=== PATIENT | male | born 1940 | race Caucasian/White ===

== ENCOUNTER 2024-08-24 07:47 | Emergency (ER) | payer OTHER, SELFPAY ==
[2024-08-24 07:51] VITALS: BP 166/74
[2024-08-24 08:21] VITALS: BP 159/69
--- NOTE | 2024-08-24 08:21 | ED.GENMED ---
History of Present Illness
<STEFAN Ortiz - Last Filed: 08/24/24 13:09>
General
Chief Complaint: Abdominal Pain
Source: patient and spouse
Exam Limitations: none
Time Seen by Provider: 08/24/24 08:05
Nursing documentation reviewed up to this point in time: agreed with
History of Present Illness
History of Present Illness:
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
prostate cancer nephrectomy due to renal cell carcinoma, renal insufficiency(baseline creatinine 1.8�2) presents to the ER for evaluation. Patient reports on night into Sunday he had upper abdominal pain and some shortness of breath with
chest pain. He felt the sensation that his heart was racing only when he placed his hand on his abdomen chest area. He had no pain yesterday throughout the day but pain started again midnight and has persisted. Again he points to his upper
abdominal area into his chest. He does describe trouble breathing with the pain.
Past History
<STEFAN Ortiz - Last Filed: 08/24/24 13:09>
Past History
ED Past Medical History: CAD, Cancer (Renal cell carcinoma), HTN, Hypercholesterolemia, TN, Renal failure, Other (Hypomagnesemia, bilateral DVT, BPH) and Other (Coronary disease status post stent, spinal stroke, large bowel infarction, [place]
filter)
ED Past Surgical History: Bowel resection (Large bowel resection due to post AAA bowel infarction 2013), Cardiac (Angioplasty), Urological (Right nephrectomy) and Other (AAA repair 2013, patient suffered spinal stroke intraoperative with resultant
paraplegia)
Social History
Tobacco: Former smoker
Alcohol: None
Drug: None
Personal:
Living: with family
Employment: Disabled
Family History
Family History: CAD
Review of Systems
<STEFAN Ortiz - Last Filed: 08/24/24 13:09>
Review of Systems
Allergies reviewed?: Yes
All Other Systems: ROS reviewed and negative except as documented in HPI and ROS
Constitutional: Reports no symptoms; Denies fever, fatigue or chills
EENT: Reports no symptoms
Respiratory: Reports trouble breathing
Cardiac: Reports chest pain (chest pain/upper abd pain )
ABD/GI: Reports abdominal pain; Denies vomiting, diarrhea or bloody stools
: Reports no symptoms
Musculoskeletal: Reports no symptoms
Skin: Reports no symptoms
Neurological: Reports no symptoms
Psychiatric: Reports no symptoms
Phy Exam
<STEFAN Ortiz - Last Filed: 08/24/24 13:09>
General Physical Exam
General Presentation: no apparent distress
General age: appears stated age
General Skin: warm and dry
General Habitus: normal
General Mental: alert
General Hydration: appears well hydrated
Cardiovascular Exam
Cardiovascular Exam: regular rate/rhythm, no murmur and normal peripheral pulses
Pulmonary Exam
Pulmonary Exam: lungs clear and no respiratory distress
Gastrointestinal Exam
Gastrointestinal Exam: soft and other (tender epigastric region)
Neurological Exam
Neurological Exam: alert and oriented x3
Musculoskeletal Exam
Musculoskeletal Exam: full ROM
Skin Exam
Skin Exam: normal color and warm/dry
Psychiatric Exam
Psychiatric Exam: normal mood/affect
Course
<STEFAN Ortiz - Last Filed: 08/24/24 13:09>
Orders/Labs/Results
Orders:
Orders
08/24/24 07:48
Electrocardiogram (*1) Urgent
Reason for Study: Other
Other Reason for Exam: tachy
EKG- Treatment ONCE
08/24/24 08:22
Cardiac Monitoring- Treatment ONCE
IV Insert/Care/Rem.- Treatment PRN
CR Chest - 2 Views Urgent
Comment:
Reason For Exam: cp
08/24/24 08:30
CT Abd/pel Without Iv Or Oral Urgent
Comment:
Reason For Exam: CKD upper abd pain
08/24/24 08:34
Complete Blood Count/With Diff Urgent
Comprehensive Metabolic Panel Urgent
TSH Urgent
Troponin I Urgent
08/24/24 09:41
Famotidine [Pepcid] 20 mg IV NOW STA
08/24/24 11:24
Electrocardiogram (*1) Stat
Reason for Study: Abdominal Pain
EKG- Treatment ONCE
08/24/24 11:47
Troponin I Urgent
Abnormal Lab Results
08/24/24
08:34
Absolute Lymphs (auto) 1.1 L 10^3/uL
(1.2-3.4)
Neutrophils % 80.1 H %
(42.2-75.2)
Lymphocytes % 15.2 L %
(20.5-51.1)
BUN 28 H mg/dl
(9-20)
Creatinine 1.7 H mg/dL
(0.7-1.3)
Glucose 163 H mg/dl
(70-99)
Calcium 10.3 H mg/dl
(8.4-10.2)
ALT 59 H U/L
(0-50)
08/24/24 08:34
08/24/24 08:34
Vital Signs
Initial and Last Documented VS:
Initial Vital Signs
Temp Pulse Resp BP Pulse Ox
98.1 F 46 18 166/74 98
08/24/24 07:51 08/24/24 07:51 08/24/24 07:51 08/24/24 07:51 08/24/24 07:51
Last Documented Vital Signs
Temp Pulse Resp BP Pulse Ox
98.1 F 68 18 151/69 92
08/24/24 07:51 08/24/24 09:45 08/24/24 09:45 08/24/24 09:17 08/24/24 09:45
Regional Administrative Assistant consulted with Physician
Regional Administrative Assistant consulted with physician?: Yes
Name of Physician Consulted: Daya
<Bart Hamilton, DO - Last Filed: 08/24/24 09:02>
Orders/Labs/Results
Orders:
Orders
08/24/24 07:48
Electrocardiogram (*1) Urgent
Reason for Study: Other
Other Reason for Exam: tachy
EKG- Treatment ONCE
08/24/24 08:22
Cardiac Monitoring- Treatment ONCE
IV Insert/Care/Rem.- Treatment PRN
CR Chest - 2 Views Urgent
Comment:
Reason For Exam: cp
08/24/24 08:30
CT Abd/pel Without Iv Or Oral Urgent
Comment:
Reason For Exam: CKD upper abd pain
08/24/24 08:34
Complete Blood Count/With Diff Urgent
Comprehensive Metabolic Panel Urgent
TSH Urgent
Troponin I Urgent
08/24/24 09:41
Famotidine [Pepcid] 20 mg IV NOW STA
08/24/24 11:24
Electrocardiogram (*1) Stat
Reason for Study: Abdominal Pain
EKG- Treatment ONCE
08/24/24 11:47
Troponin I Urgent
Abnormal Lab Results
08/24/24
08:34
Absolute Lymphs (auto) 1.1 L 10^3/uL
(1.2-3.4)
Neutrophils % 80.1 H %
(42.2-75.2)
Lymphocytes % 15.2 L %
(20.5-51.1)
BUN 28 H mg/dl
(9-20)
Creatinine 1.7 H mg/dL
(0.7-1.3)
Glucose 163 H mg/dl
(70-99)
Calcium 10.3 H mg/dl
(8.4-10.2)
ALT 59 H U/L
(0-50)
08/24/24 08:34
08/24/24 08:34
Vital Signs
Initial and Last Documented VS:
Initial Vital Signs
Temp Pulse Resp BP Pulse Ox
98.1 F 46 18 166/74 98
08/24/24 07:51 08/24/24 07:51 08/24/24 07:51 08/24/24 07:51 08/24/24 07:51
Last Documented Vital Signs
Temp Pulse Resp BP Pulse Ox
98.1 F 68 18 151/69 92
08/24/24 07:51 08/24/24 09:45 08/24/24 09:45 08/24/24 09:17 08/24/24 09:45
<STEFAN Ortiz - Last Filed: 08/24/24 13:09>
MDM/Problems Addressed
Differential Diagnosis Includes:
Not limited to ACS, reflux, biliary colic
MDM/Problems Addressed:
As documented patient is 83-year-old with complicated medical history including complications from aneurysm repair/spinal stroke now with paralysis colostomy. He has a history of renal cancer with nephrectomy and has a history of TN. He is on
Xarelto. He presents to the ER complaining of epigastric discomfort/upper abdominal pain/chest pain that started 2 nights ago and again last night. He does report however this is similar to when he had his previous TN. He presents awake alert no
acute distress tender to the epigastric area denies any recent fevers chills injury his white count is normal he is afebrile his LFTs are normal. Patient was eval by ED physician EKG was done which does show worsening T wave inversions compared to
previous EKG done in 2022 however his troponin is negative. With concerning history I did speak with his cardiology group on-call Dr. Saeed who will come evaluate patient. Chest x-ray was performed and unremarkable noncontrast CAT scan was done as
patient does have renal insufficiency and 1 solitary kidney which x-ray cholelithiasis there is a stable 4 mm gallstone in the neck adjacent to the cystic duct the gallbladder is normally distended and there is subtle pericholecystic stranding soft
tissue stranding.
will try Pepcid.
Patient feeling much better after Pepcid. Patient was evaluated by cardiology Dr. Saeed. Repeat troponin negative. ekg unchanged. As discussed with cardiology will DC home on PPI however they will follow-up with patient recommend outpatient
stress test as well as Holter monitor
pt is feeling better w/ upper abd pain possibly GERD gastritis. Patient's CAT scan does show a stable 4 mm stone in the neck adjacent to the cystic duct however normally distended gallbladder with some Pericholecystic soft tissue stranding will
d/c w/ Protonix with outpt f/u by cardiology and GI (possibly symptoms are related to gallbladder plus or minus gastritis or)
<STEFAN Ortiz - Last Filed: 08/24/24 13:09>
*Radiology
Radiology exam reviewed: radiology read reviewed
*Pulse Oximetry
Patient hypoxic: no
*EKG
Interpreted by ED Provider?: Yes
Comparison EKG: changes noted (increased t wave inversions)
Heart Rate: 47
Rate: bradycardiac
Rhythm: sinus
Ischemia: T-wave inversion
*Critical Care Note
Total Time (30-74mins, 75-104mins- exclusive of procedures): Not Applicable
Data Reviewed
Review of Other/Old Records Reveals: Labs and Other (prior ekg)
Source: patient and family
<STEFAN Ortiz - Last Filed: 08/24/24 13:09>
Patient Management
Discussion with other providers: [employer] (DR Saeed )
ED Attending Note
<STEFAN Ortiz - Last Filed: 08/24/24 13:09>
-
Portions of this chart may have been created with voice recognition software.� Occasional wrong word or��sound alike� substitutions may have occurred due to the inherent limitations of voice recognition software.
<Bart Hamilton DO - Last Filed: 08/24/24 09:02>
ED Attending Note
Patient seen and examined by attending physician: Yes
I performed the substantive portion of visit, reviewed & personally made and approve the management plan that is documented in note by myself or MADAI.: Yes
I performed a history and physical exam of patient and discussed management with resident, I reviewed resident's note and agree with documented findings and plan of care.: Yes
ED Attending Note:
I evaluated the patient at bedside. The patient does have an abnormal EKG with T wave inversion noted in the lateral leads. This may be related to LVH however this is a change paired to prior and he tells me that the discomfort that he feels is
similar to when he had a heart attack in the past. He is known to Dr. Torres.
Discharge Plan
Departure
Patient Disposition: Home (Routine Discharge)
Date of Disposition: 08/24/24
Time of Disposition: 13:03
Patient with high blood pressure during this ER visit?: Yes
Condition: Fair
Covid-19: Not Applicable
Discharge Problem:
Acute upper abdominal pain
Instructions: Chest Pain DCA Follow Up, Abdominal Pain, BLOOD PRESSURE
Prescriptions:
New
pantoprazole [Protonix] 40 mg tablet,delayed release (DR/EC)
40 mg PO DAILY Qty: 30 0RF
No Action
gabapentin 100 MG capsule
100 mg PO BID
baclofen 10 MG tablet
5 mg PO BID
metoprolol succinate 25 MG tablet extended release 24 hr
12.5 mg PO HS
magnesium oxide 500 MG tablet
500 mg PO HS
potassium chloride 10 mEq Capsule, Extended Release
10 meq PO DAILY
aspirin 81 MG tablet,delayed release (DR/EC)
81 mg PO DAILY
atorvastatin 20 mg Tablet
20 mg PO QPM
Xarelto 20 mg Tablet
20 mg PO QPM
methenamine hippurate 1 gram tablet
1 g PO QPM
Referrals:
James Terry MD [Family Provider] -
Antonio Torres MD [Active] -
Anne Restrepo DO [Active] -
Activity Restrictions/Additional Instructions:
As discussed a prescription for Protonix was sent to your pharmacy take once daily starting tomorrow .
Please follow-up with both cardiology and GI. If you do not hear from their groups in the next several days please call their offices to arrange appointment as soon as possible. It is recommended by cardiology that you have a Holter monitor as
well as a stress test.
In the meantime return if any worsening of symptoms.
Interventions
Interventions:
*Risk Screen - Suicide Last Done: 08/24/24 07:51
*General Assessment Last Done: 08/24/24 07:51
*Neglect/Abuse Screening Last Done: 08/24/24 07:51
ED- Fall Risk Assessment Last Done: 08/24/24 08:22
Discharge Date and Time
Print Language: HUNGARIAN
[2024-08-24 08:30] VITALS: BMI 29.7
[2024-08-24 08:52] LABS: % Basophils 0.4 % (0-2); % Eosinophils 0.3 % (0-6); % Immature Granulocytes 0.3 % (0-0.5); % Lymphocytes 15.2 % (20.5-51.1); % Monocytes 3.7 % (1.7-9.3); % Neutrophils 80.1 % (42.2-75.2); Absolute Lymphocytes 1.1 10^3/uL (1.2-3.4); Absolute Monocytes 0.3 10^3/uL (0.1-0.6); Absolute Neutrophils 5.9 10^3/uL (1.4-6.5); Hematocrit 47.4 % (39.0-52.0); Hemoglobin 16.2 g/dL (13.0-18.0); Mean Corp Hgb Conc. 34.2 g/dL (33.0-37.0); Mean Corpuscular Hgb 30.1 pg (27.0-31.0); Mean Corpuscular Volume 88.1 fL (80.0-94.0); Mean Platelet Volume 10.3 fL (7.4-10.4); Nucleated Red Blood Cells % 0 % (-); Platelet Count 192 10^3/uL (130-400); Red Blood Cell Count 5.38 10^6/uL (4.70-6.10); Red Cell Dist. Width 14.1 % (11.5-14.5); White Blood Cell Count 7.3 10^3/uL (4.8-10.8)
[2024-08-24 09:11] LABS: ALT (SGPT) 59 U/L (0-50); AST (SGOT) 44 U/L (17-59); Albumin 4.9 g/dl (3.5-5.0); Alkaline Phosphatase 98 U/L (38-126); Blood Urea Nitrogen 28 mg/dl (9-20); Calcium 10.3 mg/dl (8.4-10.2); Carbon Dioxide 26 mmol/L (22-30); Chloride 101 mmol/L (98-107); Estimated Creatinine Clearance 32 ml/min; Glucose 163 mg/dl (70-99); Potassium 4.4 mmol/L (3.5-5.1); Sodium 142 mmol/L (135-145); Total Protein 7.8 g/dl (6.3-8.2); eGFR 39.51
[2024-08-24 09:17] VITALS: BP 151/69
[2024-08-24 09:21] LABS: Troponin I < 0.012 ng/ml
[2024-08-24 09:41] LABS: TSH 1.07 uIU/ml (0.47-4.68)
[2024-08-24] MEDS: PEPCID 20 MG IV (10:10)
--- NOTE | 2024-08-24 10:33 | CON.CAR ---
Consultation
Consultation Request
Date/Time Consultation Requested: 08/24/2024 at 10 AM
Date/Time Consultation Performed: 08/24/2024 and 10:30 AM
Requesting Provider: STEFAN Leung
Performing Provider: Donnie Saeed MD
Reason for Consultation: Chest pain, CAD
Medical History
-
Chief Complaint: Chest pain with
History of Present Illness:
83-year-old man with history of bare-metal stent for an ACS back in 2013, 60% LAD stenosis at that time. Last seen by Dr. Torres in 2022, stable from a cardiac standpoint. Since then he has been diagnosed with prostate cancer. He received
Lupron. night, he noted rapid heart rate for 10 hours with substernal pressure, some radiation to the left side. He had mild dyspnea associated with this as well. Symptoms resolved but then recurred yesterday evening, not related to
meals. He had residual symptoms upon arrival to the ER with a heart rate of 46. He did note fast heart rate at the time of his second episode as well. Initial troponin is undetectable. Lateral T wave changes are slightly more apparent than in
2022. He received IV Pepcid and feels improved. CT of the abdomen and pelvis showed minimal stranding around the gallbladder with a stone.
Past Medical History
Past Medical History: CAD (ACS 2013 with 95% distal RCA stenosis treated with bare-metal stent, 60% proximal LAD stenosis managed medically, normal EF, remote PCI 18 years ago at [facility]), Cancer (Right renal cell carcinoma 2015), GERD, HTN,
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
Past Surgical History: Bowel Resection (Ischemic bowel requiring colectomy, ileostomy IVC filter), Urological (Right nephrectomy for renal cell carcinoma) and Other (Endovascular abdominal aortic aneurysm repair 2014 complicated by spinal cord
ischemia and lower extremity paralysis, ischemic bowel, colectomy)
Social History
Tobacco: Former Smoker
Alcohol: Occasional
Drug: None
Personal:
Living: With Family
Employment: Retired (delivery route driver)
Family History
Family History: Reviewed & Not Pertinent
Allergies / Home Medications
Allergy/AdvReac Type Severity Reaction Status Date / Time
No Known Allergies Allergy Verified 08/24/24 07:51
�Medication �Instructions �Recorded �Confirmed �Type
gabapentin 100 mg capsule 100 mg PO BID Pain 06/18/16 06/07/23 History
baclofen 10 mg tablet 5 mg PO BID Muscle Spasms 06/14/18 06/07/23 History
magnesium oxide 500 mg PO HS Electrolyte Repletion 07/02/18 06/07/23 History
metoprolol succinate 25 mg 25 mg PO HS Blood Pressure 07/02/18 06/07/23 History
tablet,extended release 24 hr
aspirin 81 mg tablet,delayed 81 mg PO DAILY Blood Clot 05/25/23 06/07/23 History
release Prevention/Tx
finasteride 5 mg tablet 5 mg PO DAILY prostate issues 05/25/23 06/07/23 History
potassium chloride 10 mEq 10 meq PO DAILY Electrolyte 05/25/23 06/07/23 History
capsule,extended release Repletion
atorvastatin 20 mg tablet 20 mg PO DAILY 05/31/23 06/07/23 History
methenamine hippurate 1 gram tablet 1 g PO DAILY #30 tabs 06/08/23 Rx
Review of Systems
-
All other systems: Negative unless noted
Physical Exam
Vital Signs
Temp Pulse Resp BP Pulse Ox
36.7 C 68 18 151/69 92
08/24/24 07:51 08/24/24 09:45 08/24/24 09:45 08/24/24 09:17 08/24/24 09:45
Lab Results
08/24/24 08:34
08/24/24 08:34
Troponin I < 0.012 ng/ml 08/24/24 08:34
Physical Exam
General: No Apparent Distress
HEENT: Normocephalic
Respiratory: Clear
Cardiac: S1/S2, Regular Rhythm and Murmur (No murmur)
GI: Non Tender, Non Distended, Normal Bowel Sounds and Other (Ileostomy)
Musculoskeletal: No Cyanosis, No Edema and Other (Paraparesis)
Skin: Warm and Dry
Neuro: AO x 3 and Other (Paraparesis)
Psych: Calm
Impression / Plan
-
Impression:
Chest pain
CAD status post bare-metal stent for ACS to the RCA in 2013, 60% LAD stenosis
Endovascular AAA repair complicated by spinal cord injury and paraparesis, ischemic bowel
Status post colectomy end ileostomy
Renal cell carcinoma status post right nephrectomy
History of DVT on Xarelto
Hypertension
CKD stage IV
Hypercholesterolemia
GERD
Echocardiogram May 2015: Normal LV wall thickness and size, EF 55%, mildly dilated aortic root, normal RV, normal atria, grossly normal valve, normal right heart, could not determine pulmonary artery pressure
Echo January 2015: Moderate LVH, EF 60%, calcified aortic valve with mild aortic regurgitation, ascending aorta 4.3 cm, normal RV, normal RA, top normal LA, mild mitral regurgitation, mild to moderate TR with normal pulmonary artery pressure
Sestamibi study 2013, 12 METS no ischemia
Cardiac catheterization June 2015: Normal left main, 60% proximal LAD, could not perform IFR, luminal irregularities of circumflex and OM, dominant right coronary 30% proximal, mild ectasia, ulcerated 95% distal RCA, EF 60% with dilated
ascending aorta, 4 x 15 vision bare-metal stent to distal RCA
Plan:
He presents with chest pain that could be ischemic in origin and that it is similar to his prior event. However, his troponin is undetectable making an ACS less likely. It is conceivable that he had paroxysmal atrial fibrillation or an associated
rhythm disturbance causing symptoms as well, but heart rate was 46 when he arrived in the ER and he still had ongoing symptoms.
It may be more likely that symptoms are GI, possibly either reflux as an H2 zulema seem to help. Also, it is conceivable that his symptoms relate to his gallbladder, the radiation to the left side would be unusual.
.
We discussed inpatient versus outpatient management. I think he should have an echocardiogram, a Lexiscan sestamibi study and a monitor but I am hopeful the studies will be satisfactory. He would prefer to be managed as an outpatient and I think
the risk associated with this is low.
The emergency department will discharge him on a proton pump inhibitor. We will see him in follow-up. Further management can be based upon the results of his studies.
Data Reviewed
-
EKG: Tracing Personally Visualized and interpreted (ECG today: Sinus bradycardia, 47 bpm, LVH, possible IMI, possible anterolateral ischemia, anterolateral ST changes slightly more apparent than 2022)
Radiology: Image Personally Visualized and interpreted (Chest x-ray no active disease, uncoiled aorta)
CT Scan: Report Reviewed by me (CT of abdomen and pelvis: Abdominal aorta is aneurysm sac 7.7 x 7.9, stable, IVC filter, right common iliac 2.5 cm, subtotal colectomy, cholelithiasis, minimal pericholecystic stranding, nonspecific, No contrast)
Labs: Labs Reviewed by me (White count 7.3, hemoglobin 16.2, BUN and creatinine 28 and 1.7, stable, calcium 10.3, ALT 59, normal TSH, troponin undetectable)
Old Records: Reviewed
[2024-08-24 12:27] LABS: Troponin I < 0.012 ng/ml
== END 2024-08-24 13:10 | disposition home or self-care (01) ==
LOC: EMR 07:47
PROVIDERS: Nurse Practitioner; EMERGENCY PHYSICIAN Emergency Medicine; FAMILY PHYSICIAN Family Medicine
DX: R10.9 Unspecified abdominal pain (principal); I25.10 Atherosclerotic heart disease of native coronary artery without angina pectoris; I25.2 Old myocardial infarction; I12.9 Hypertensive chronic kidney disease with stage 1 through stage 4 chronic kidney disease, or unspecified chronic kidney disease; N18.4 Chronic kidney disease, stage 4 (severe); E78.00 Pure hypercholesterolemia, unspecified; G82.20 Paraplegia, unspecified; K21.9 Gastro-esophageal reflux disease without esophagitis; N40.0 Benign prostatic hyperplasia without lower urinary tract symptoms; Z79.01 Long term (current) use of anticoagulants; Z82.49 Family history of ischemic heart disease and other diseases of the circulatory system; Z85.46 Personal history of malignant neoplasm of prostate; Z85.528 Personal history of other malignant neoplasm of kidney; Z86.718 Personal history of other venous thrombosis and embolism; Z87.442 Personal history of urinary calculi; Z87.891 Personal history of nicotine dependence; Z90.49 Acquired absence of other specified parts of digestive tract; Z90.5 Acquired absence of kidney; Z93.3 Colostomy status; Z95.5 Presence of coronary angioplasty implant and graft
CPT/HCPCS: 99284; 96374; 71046; 74176; 80053; 84443; 84484; 85025; 93005

== ENCOUNTER → 2024-09-10 07:50 | Outpatient (REF) | payer OTHER, SELFPAY | LOC: RCS 07:50 | PROVIDERS: ATTENDING PHYSICIAN Internal Medicine Cardiovascular Disease; FAMILY PHYSICIAN Family Medicine | DX: I25.10 Atherosclerotic heart disease of native coronary artery without angina pectoris (principal); R07.89 Other chest pain; R00.0 Tachycardia, unspecified | CPT/HCPCS: 93306; Q9950 ==